=== PATIENT | male | born 1985 | race Caucasian/White ===

== ENCOUNTER 2020-01-16 09:43 | Day surgery (SDC) | payer OTHER ==
[~2020-01-16] VITALS: Ht 167.6 cm; Wt 81.0 kg
[2020-01-16] MEDS ORDERED: OXCA600T10 PO (10:07)
[2020-01-16] MEDS ORDERED: OMEP-110 PO (10:07)
[2020-01-16] MEDS ORDERED: IBUP-1623 PO (10:07)
[2020-01-16] MEDS ORDERED: [UNRECOGNIZED DRUG - CODE] INJ (10:07)
[2020-01-16] MEDS ORDERED: FLUO40CA9 PO (10:07)
[2020-01-16] MEDS ORDERED: MIRT30TA4 PO (10:07)
[2020-01-16] MEDS ORDERED: ARIP2TAB2 PO (10:07)
[2020-01-16 10:08] VITALS: BP 143/83
[2020-01-16] MEDS ORDERED: LACTATED RINGERS 1,000 ML IV SCH (10:16)
[2020-01-16] MEDS ORDERED: SUCCINYLCHOLINE 20 MG/ML, 10ML ONE (12:11)
[2020-01-16] MEDS ORDERED: ROCURONIUM 10MG/ML,5ML ONE (12:11)
[2020-01-16] MEDS ORDERED: ONDANSETRON 2MG/ML, 2ML ONE (12:11)
[2020-01-16] MEDS ORDERED: DEXAMETHASONE 4 MG/ML, 1ML ONE (12:11)
[2020-01-16] MEDS ORDERED: PROPOFOL 10 MG/ML, 20ML ONE (12:11)
[2020-01-16] MEDS ORDERED: FENTANYL PF 100 MCG/2ML IV PRN (12:30)
[2020-01-16] MEDS ORDERED: hydrALAzine 20 MG/ML, 1ML IV PRN (12:30)
[2020-01-16] MEDS ORDERED: PROMETHAZINE 25 MG/ML, 1ML IV PRN (12:30)
[2020-01-16] MEDS ORDERED: LABETALOL 5MG/ML, 20ML IV PRN (12:30)
[2020-01-16] MEDS ORDERED: HALOPERIDOL 5 MG/ML IV PRN (12:30)
== END 2020-01-16 13:40 | disposition home or self-care (01) ==
LOC: OUT 09:43
PROVIDERS: ATTEND Internal Medicine
DX: K21.9 Gastro-esophageal reflux disease without esophagitis (principal); D64.9 Anemia, unspecified; I10 Essential (primary) hypertension; F32.9 Major depressive disorder, single episode, unspecified; F43.10 Post-traumatic stress disorder, unspecified; K62.5 Hemorrhage of anus and rectum; K29.50 Unspecified chronic gastritis without bleeding; F17.210 Nicotine dependence, cigarettes, uncomplicated; Z88.2 Allergy status to sulfonamides; Z79.899 Other long term (current) drug therapy; Z88.8 Allergy status to other drugs, medicaments and biological substances
CPT/HCPCS: 43237; 43254; 88305; J0330; J1100; J2405; J2704; J7120